=== PATIENT | male | born 1975 ===

== ENCOUNTER 2020-04-27 17:48 | Emergency (ER) | payer BC ==
[2020-04-27 18:05] VITALS: BP 139/89; PULSE 92
--- NOTE | 2020-04-27 18:44 | EDM.PDOC ---
ED HPI GENERAL MEDICAL PROBLEM - General Chief Complaint: General Stated Complaint: LIP NUMBNESS /RAPID HEART RATE THIS MORNING Time Seen by Provider: 04/27/20 18:02 Source of Information: Reports: Patient, RN Notes Reviewed - History of Present Illness INITIAL COMMENTS - FREE TEXT/NARRATIVE: 45 yr old had brief episode of palpitations this past morning, felt like his "heart was pounding". This lasted about 1 minute. He did get mildly dizzy, felt his "lips get numb". He has had no further palpitations today. No cough, chest pain fever, chills, or difficulty breathing. He does smoke but no hx of Htn, CAD, diabetes. - Related Data Allergies Allergy/AdvReac Type Severity Reaction Status Date / Time No Known Allergies Allergy Verified 04/27/20 18:05 Home Meds: Home Meds Ibuprofen [Motrin] 600 mg PO Q6H PRN #30 tab 11/13/14 [Rx] Past Medical History - Past Health History Medical/Surgical History: Denies Medical/Surgical History Social & Family History - Tobacco Use Tobacco Use Status *Q: Current Every Day Tobacco User Years of Tobacco use: 20 Packs/Tins Daily: 0.5 ED ROS GENERAL - Review of Systems Review Of Systems: See Below Constitutional: Denies: Fever, Chills, Diaphoresis HEENT: Reports: No Symptoms Respiratory: Denies: Shortness of Breath Cardiovascular: Reports: Palpitations. Denies: Chest Pain GI/Abdominal: Denies: Abdominal Pain, Nausea, Vomiting Musculoskeletal: Denies: Neck Pain, Shoulder Pain, Arm Pain Skin: Reports: No Symptoms Neurological: Reports: Dizziness (brief, gone) ED EXAM, GENERAL - Physical Exam Exam: See Below General Appearance: Alert Eye Exam: Bilateral Eye: PERRL Throat/Mouth: Normal Inspection Head: Atraumatic Neck: Supple Respiratory/Chest: No Respiratory Distress, Lungs Clear Cardiovascular: Regular Rate, Rhythm GI/Abdominal: Soft, Non-Tender Extremities: Normal Inspection. No: Pedal Edema, Leg Pain Neurological: Alert, Oriented, No Motor/Sensory Deficits Skin Exam: Warm, Dry, Normal Color #1 Interpretation EKG Date: 04/27/20 Rhythm: NSR Lizella: Normal P-Wave: Present QRS: Normal ST-T: Normal Course - Vital Signs Last Recorded V/S: Last Vital Signs Temp 98.1 F 04/27/20 18:02 Pulse 92 04/27/20 18:02 Resp 18 04/27/20 18:02 BP 139/89 04/27/20 18:02 Pulse Ox 96 04/27/20 18:02 - Re-Assessments/Exams Free Text/Narrative Re-Assessment/Exam: 04/28/20 07:18 EKG was normal, NSR, no ectopy, will send home with holter moniter. Departure - Departure Time of Disposition: 18:59 Disposition: Home, Self-Care 01 Condition: Fair Clinical Impression: Palpitations - Discharge Information Instructions: Palpitations, [id number] Referrals: PCP,None [Primary Care Provider] - Forms: ED Department Discharge Additional Instructions: 48 hour holter moniter. Follow up with Becky Vincent for results about 4 to 5 days after you return the moniter to the hospital for results, further evaluation and treatment as needed. Try eat a cardiac healthy diet. Stop smoking. Increase your exercise activities. Return to ED as needed if symptoms worsening in any way. Sepsis Event Note (ED) - Evaluation Sepsis Screening Result: No Definite Risk
== END 2020-04-27 19:10 | disposition home or self-care (01) ==
LOC: JD.ED 17:48
DX: R00.2 Palpitations (principal); R42 Dizziness and giddiness; F17.200 Nicotine dependence, unspecified, uncomplicated; Z72.0 Tobacco use
CPT/HCPCS: 93005; 93010; 93225; 93226; 99283; 99284-25